=== PATIENT | female | born 1945 | race Caucasian/White ===

== ENCOUNTER 2018-11-15 07:30 | Day surgery (SDC) | payer MEDICARE, BC ==
[~2018-11-15] VITALS: Ht 172.7 cm; Wt 89.4 kg
[~2018-11-15 07:30] MED LIST: ALBU3IS NEB; ATOR10; AZAT50; AZAT50 PO; AZIT250; Bactrim Ds Tab1 EACH PO; Calcium 500 MG1 EACH PO; Cough Syru100 MG/5 M PO; DICL25ER PO; Diclofenac Pota50 MG; FLUSAL2505 PO; GABA300; GABA300 PO; HYDACE10B PO; HYDR-86; HYDR1TAB94; HYDSUL200; HYDSUL200 PO; Humalog100 UNIT/1; Humalog100 UNIT/1 SC; IBUP800 PO; INSULANPEN SC; LANS30EC; LANS30EC PO; LEVFLO500 PO; LOSARTAN-HCTZ1 EACH; LOSARTAN-HCTZ1 EACH PO; MELO7.5 PO; METFORMIN HCL1000 MG; METO25ER; METPRE4DP PO; Metformin HCl1000 MG PO; OXYC5; OXYC5 PO; PANT40; PRED10 PO; TRAM50; TRAM50 PO; TRESIBA FL100 UNIT/1; Tussionex Penn480 ML PO; VITAMIN D33000 UNIT PO; Ventolin/Prove6.7 GM INH; ZOLP5; Zolpidem Tartra10 MG PO
[2018-11-15] MEDS ORDERED: ERGO400 (08:08)
[2018-11-15] MEDS ORDERED: Fortamet500 MG (08:10)
--- NOTE | 2018-11-15 10:03 | NUR ---
11/15/18 1003 Christine Landrum PT C/O A LITTLE BIT OF NAUSEA IN SDU. PT DENIES FURTHER ANTI NAUSEA MEDICATIONS. NO EMESIS IN SDU. LUNGS CTA WITH DRY COUGH. VSS.
--- NOTE | 2018-11-15 10:41 | NUR ---
11/15/18 1041 Kami Easley [id number] PT. RETCHING, THEN WITH SMALL AMT. YELLOW EMESIS. PT. SUCTIONED ORALLY FOR SMALL AMT. YELLOW SECRETIONS. PT. GIVEN ZOFRAN 4MG IV PER DR. TESFAYE. [id number] PT. RETCHING AGAIN. PT. ORALLY SUCTIONED AGAIN FOR SMALL AMT. YELLOW SECRETIONS. POST COLONOSCOPY PT. DID C/O FEELING A LITTLE BIT NAUSEATED WHEN SHE WOKE UP. PT. VERBALIZES DOING OK. V.S.S.
== END 2018-11-15 10:07 | disposition home or self-care (01) ==
LOC: ORSCSDS 07:30
PROVIDERS: Internal Medicine Gastroenterology
PROC: 0DBH8ZX Excision of Cecum, Via Natural or Artificial Opening Endoscopic, Diagnostic (ICD-10-PCS; principal; 2018-11-15 09:00)
DX: Z12.11 Encounter for screening for malignant neoplasm of colon (principal); D12.0 Benign neoplasm of cecum; K57.30 Diverticulosis of large intestine without perforation or abscess without bleeding; E11.9 Type 2 diabetes mellitus without complications; I10 Essential (primary) hypertension; Z87.891 Personal history of nicotine dependence; Z79.4 Long term (current) use of insulin; Z79.899 Other long term (current) drug therapy
CPT/HCPCS: 82947; 88305; J0330; J1980; J2405; J7120

== ENCOUNTER 2019-07-10 07:57 | Emergency (ER) | payer MEDICARE, BC ==
[~2019-07-10] VITALS: Ht 170.2 cm; Wt 90.7 kg
[~2019-07-10 07:57] MED LIST changes: +ERGO400; +Fortamet500 MG
[2019-07-10] MEDS ORDERED: ALBU2.5V5 INH (11:14)
[2019-07-10] MEDS ORDERED: MUCINEX D ER 61 EACH PO (11:14)
== END 2019-07-10 11:23 | disposition home or self-care (01) ==
LOC: ER 07:57
DX: J02.9 Acute pharyngitis, unspecified (principal); J40 Bronchitis, not specified as acute or chronic; Z88.5 Allergy status to narcotic agent; Z88.8 Allergy status to other drugs, medicaments and biological substances; Z79.899 Other long term (current) drug therapy; Z79.4 Long term (current) use of insulin; Z79.891 Long term (current) use of opiate analgesic; E11.9 Type 2 diabetes mellitus without complications; Z87.891 Personal history of nicotine dependence
CPT/HCPCS: 71046; 87081; 87430; 99283-25

== ENCOUNTER 2020-07-09 11:00 | Day surgery (SDC) | payer MEDICARE, BC ==
[~2020-07-09] VITALS: Ht 172.7 cm; Wt 88.1 kg
[~2020-07-09 11:00] MED LIST changes: +ALBU2.5V5 INH; +MUCINEX D ER 61 EACH PO
--- NOTE | 2020-07-09 11:29 | NUR ---
07/09/20 Abril Gao 1 TRY RIGHT HAND HAD A VALVE
== END 2020-07-09 13:25 | disposition home or self-care (01) ==
LOC: ORSCSDS 11:00
PROVIDERS: Internal Medicine Gastroenterology
PROC: 0DB88ZX Excision of Small Intestine, Via Natural or Artificial Opening Endoscopic, Diagnostic (ICD-10-PCS; principal; 2020-07-09 12:45)
PROC: 0DB58ZX Excision of Esophagus, Via Natural or Artificial Opening Endoscopic, Diagnostic (ICD-10-PCS; principal; 2020-07-09 12:45)
DX: K21.9 Gastro-esophageal reflux disease without esophagitis (principal); K22.2 Esophageal obstruction; K29.70 Gastritis, unspecified, without bleeding; R19.7 Diarrhea, unspecified; E66.9 Obesity, unspecified; Z68.30 Body mass index [BMI] 30.0-30.9, adult; Z87.891 Personal history of nicotine dependence; E11.9 Type 2 diabetes mellitus without complications; Z79.84 Long term (current) use of oral hypoglycemic drugs; Z79.4 Long term (current) use of insulin; Z79.899 Other long term (current) drug therapy
CPT/HCPCS: 82947; 87081; 88305; J2704; J7120

== ENCOUNTER → 2020-07-10 | Outpatient (CLI) | payer MEDICARE, BC ==
[2020-07-11 13:34] LABS: Adenovirus F 40/41 Not Detected (NOT DETECT); Campylobacter Sp Not Detected (NOT DETECT); Cryptosporidium Not Detected (NOT DETECT); Cyclospora Cayetanensis Not Detected (NOT DETECT); E. Coli O157 Not Detected (NOT DETECT); Entamoeba Histolytica Not Detected (NOT DETECT); Enteroaggregative E. coli-EAEC Not Detected (NOT DETECT); Enteropathogenic E. coli-EPEC Not Detected (NOT DETECT); Enterotoxigenic E. coli-ETEC Not Detected (NOT DETECT); Giardia Lamblia Not Detected (NOT DETECT); Plesiomonas Shigelloides Not Detected (NOT DETECT); Salmonella Sp Not Detected (NOT DETECT); Shiga Toxin-prod E. coli-STEC Not Detected (NOT DETECT); Shigella/Enteroin E. coli-EIEC Not Detected (NOT DETECT); Vibrio Cholerae Not Detected (NOT DETECT); Vibrio Sp Not Detected (NOT DETECT); Yersinia Enterocolitica Not Detected (NOT DETECT)
[2020-07-11 13:35] LABS: Astrovirus Not Detected (NOT DETECT); Norovirus GI/GII Not Detected (NOT DETECT); Rotavirus A Not Detected (NOT DETECT); Sapovirus Not Detected (NOT DETECT)
== END | disposition home or self-care (01) ==
LOC: LAB SHORT 11:27 → OLS 11:27 → LAB SHORT 07-11 11:27
PROVIDERS: Internal Medicine Gastroenterology
DX: R19.7 Diarrhea, unspecified (principal)
CPT/HCPCS: 0097U

== ENCOUNTER → 2021-10-29 | Outpatient (CLI) | payer MEDICARE, BC | END | disposition home or self-care (01) | LOC: LAB SHORT 15:06 | DX: L82.1 Other seborrheic keratosis (principal) | CPT/HCPCS: 88305 ==

== ENCOUNTER → 2022-01-09 | Outpatient (CLI) | payer MEDICARE, BC | END | disposition home or self-care (01) | LOC: LAB SHORT 10:28 → LAB 10:28 | DX: R30.9 Painful micturition, unspecified (principal) | CPT/HCPCS: 87077; 87086; 87186 ==

== ENCOUNTER 2022-05-23 08:04 | Emergency (ER) | payer MEDICARE, BC ==
[~2022-05-23] VITALS: Ht 170.2 cm; Wt 78.9 kg
[2022-05-23] MEDS ORDERED: HYDR1TAB94 PO (10:24)
[2022-05-23] MEDS ORDERED: Prednisone20 MG PO (10:39)
[2022-05-23] MEDS ORDERED: CYCL10 PO (10:39)
== END 2022-05-23 10:46 | disposition home or self-care (01) ==
LOC: ER 08:04
DX: M54.50 Low back pain, unspecified (principal); G89.29 Other chronic pain; I10 Essential (primary) hypertension; K21.9 Gastro-esophageal reflux disease without esophagitis; E11.9 Type 2 diabetes mellitus without complications; J45.909 Unspecified asthma, uncomplicated; Z79.899 Other long term (current) drug therapy; Z79.4 Long term (current) use of insulin; Z88.5 Allergy status to narcotic agent; Z88.8 Allergy status to other drugs, medicaments and biological substances; Z87.891 Personal history of nicotine dependence
CPT/HCPCS: 99283

== ENCOUNTER 2022-10-02 12:48 | Emergency (ER) | payer MEDICARE, BC ==
[~2022-10-02] VITALS: Ht 170.2 cm; Wt 78.5 kg
[~2022-10-02 12:48] MED LIST changes: +CYCL10 PO; +HYDR1TAB94 PO; +Prednisone20 MG PO
== END 2022-10-02 14:05 | disposition home or self-care (01) ==
LOC: ER 12:48
DX: R60.0 Localized edema (principal); I10 Essential (primary) hypertension; K21.9 Gastro-esophageal reflux disease without esophagitis; E11.9 Type 2 diabetes mellitus without complications; J45.909 Unspecified asthma, uncomplicated; Z87.891 Personal history of nicotine dependence; Z88.5 Allergy status to narcotic agent; Z88.8 Allergy status to other drugs, medicaments and biological substances; Z79.899 Other long term (current) drug therapy; Z79.84 Long term (current) use of oral hypoglycemic drugs
CPT/HCPCS: 73630

== ENCOUNTER → 2024-02-03 | Outpatient (CLI) | payer MEDICARE, BC ==
[~2024-02-03] MED LIST changes: +AMOCLA875 PO; -ATOR10; +ATOR10 PO; +BASAGLAR K100 UNIT/1 SC; -ERGO400; +ERGO400 PO; +GUAI600T33 PO; +HUMALOG100 UNIT/1 SC; -Humalog100 UNIT/1; +JARDIANCE25 MG PO; -LANS30EC; -LOSARTAN-HCTZ1 EACH; +METF500 PO; -METO25ER; +METO25ER PO; +OXYB5 PO; -OXYC5; -PANT40; +PANT40 PO; +Ventolin5 MG/1 ML INH; -ZOLP5; +ZOLP5 PO
== END ==
LOC: LAB SHORT 13:32 → LAB EV 13:32
DX: R06.02 Shortness of breath (principal)
CPT/HCPCS: 87070; 87205

== ENCOUNTER 2024-07-21 21:08 | Observation (INO) | payer MEDICARE, BC ==
[~2024-07-21] VITALS: Ht 170.2 cm; Wt 71.9 kg
[2024-07-21 21:44] LABS: BASOPHILS ABSOLUTE AUTO 0.06 K/mm3 (0.00-0.23); BASOPHILS PERCENT AUTO 1 % (0-2); EOSINOPHILS ABSOLUTE AUTO 0.23 K/mm3 (0.00-0.68); EOSINOPHILS PERCENT AUTO 3 % (0-6); Hematocrit 34.7 % (33.0-51.0); IMMATURE GRAN ABSOLUTE AUTO 0.02 K/mm3 (0.00-0.10); IMMATURE GRAN PERCENT AUTO 0 % (0-1); LYMPHOCYTES ABSOLUTE AUTO 1.03 K/mm3 (0.84-5.20); LYMPHOCYTES PERCENT AUTO 11 % (21-46); MONOCYTES ABSOLUTE AUTO 0.96 K/mm3 (0.16-1.47); MONOCYTES PERCENT AUTO 11 % (4-13); Mean Corpuscular HGB 28.8 pg (26.0-34.0); Mean Corpuscular HGB Conc 31.7 g/dL (31.5-36.5); Mean Corpuscular Volume 91 fL (80-100); Mean Platelet Volume 10.2 fL (9.1-12.4); NEUTROPHILS ABSOLUTE AUTO 6.75 K/mm3 (1.96-9.15); NEUTROPHILS PERCENT AUTO 75 % (41-73); Platelet Count 328 K/mm3 (150-400); RDW Coefficient Variation 14.6 % (11.7-14.2); RDW Standard Deviation 48.7 fL (35.1-46.3); Red Blood Cell Count 3.82 M/mm3 (3.80-5.20); White Blood Cell Count 9.05 K/mm3 (4.00-11.30)
[2024-07-21 21:56] LABS: Source, Urine Clean Catch
[2024-07-21 21:58] LABS: Bilirubin, Urine Neg (Neg); Blood, Urine Neg (Neg); Glucose Qualitative, Urine 4+ (Neg); Ketones, Urine Neg (Neg); Leukocyte Esterase, Urine Neg (Neg); Nitrite, Urine Neg (Neg); Protein, Urine Neg (Neg); Specific Gravity, Urine 1.005 (1.003-1.022); Urobilinogen, Urine NORM (Normal)
[2024-07-21 22:01] LABS: International Normalized Ratio 0.96; Prothrombin Time Results 10.3 Sec (9.7-11.5)
[2024-07-21 22:11] LABS: Alanine Aminotransfer (ALT/SGP 11 U/L (12-78); Albumin/Globulin Ratio 0.8 (0.8-1.8); Alk Phos 102 U/L (50-136); Anion Gap 12 mmol/L (3-11); Aspartate Aminotrans (AST/SGOT 22 U/L (12-37); Bilirubin, Total 0.3 mg/dL (0.1-1.0); Blood Urea Nitrogen 10 mg/dL (8-24); Bun/Creatinine Ratio 11.9 (12.0-20.0); CO2, Blood 24 mmol/L (21-32); Calcium, Blood 8.8 mg/dL (8.5-10.1); Chloride, Blood 108 mmol/L (98-108); Creatinine, Blood 0.84 mg/dL (0.40-1.00); Ethanol (Alcohol), Blood, Med <3 mg/dL; Free Thyroxine 0.84 ng/dL (0.70-1.60); Globulin, Blood 3.9 g/dL (2.2-4.0); Glomerular Filtration Rate 72 (60-); Glucose, Blood 226 mg/dL (70-99); Magnesium, Blood 1.6 mg/dL (1.6-2.4); Potassium, Blood 4.1 mmol/L (3.5-5.5); Sodium, Blood 140 mmol/L (136-145); Total Protein, Blood 6.9 g/dL (6.4-8.2)
[2024-07-21 22:11] LABS: Appearance, Urine Clear (Clear); Color, Urine Pale Yellow (P-Yellow)
[2024-07-22] MEDS ORDERED: FLU VACC TS2024-25(6MOS UP)/PF 45 MCG/0.5 ML SYRINGE IM ONE (00:15)
[2024-07-22] MEDS ORDERED: ZYPREXA2.5 MG PO (00:37)
[2024-07-22] MEDS ORDERED: DODEX1000 MCG/3 IM (00:37)
[2024-07-22] MEDS ORDERED: FOLI1 PO (00:37)
[2024-07-22] MEDS ORDERED: 1/2 NS 250ml250 ML (02:32)
[2024-07-22] MEDS ORDERED: GABA300 PO (02:32)
[2024-07-22] MEDS ORDERED: LEFL20 PO (02:33)
[2024-07-22] MEDS ORDERED: PIRO20 PO (02:34)
[2024-07-22 02:44] LABS: U Amphetamine Screen Not Detected; U Barbituate Screen Not Detected; U Benzodiazapine Screen Not Detected; U Buprenorphine Screen Not Detected; U Cannabinoids Screen Not Detected; U Cocaine Screen Not Detected; U Methadone Screen Not Detected; U Methamphetamine Screen Not Detected; U Opiates Screen Not Detected; U Oxycodone Screen Not Detected; U Phencyclidine Screen Not Detected
[2024-07-22 03:12] VITALS: BP 131/75
[2024-07-22 03:13] VITALS: BP 131/75
[2024-07-22] MEDS ORDERED: Insulin Human Lispro 100 Units/ML 3ML Syringe SC SCH ×2 (06:00→07:30)
--- NOTE | 2024-07-22 06:25 | NUR ---
Shift Summary Pt admitted to this unit for AMS. She has a current dx of lung cancer with concerns of mets to the head. MRI scheduled for this AM, MRI screening form was completed by pt's and faxed to imaging at 0605. Pt is AOx1, forgetful and confused. Her strength is equal on both sides, eyes are PERRLA, no facial droop. She has DM2 and is currently NPO per MD order, Q6 blood sugars. BG this AM was 140, no coverage needed.
[2024-07-22 07:22] VITALS: BP 125/69
[2024-07-22 08:00] LABS: BASOPHILS ABSOLUTE AUTO 0.05 K/mm3 (0.00-0.23); BASOPHILS PERCENT AUTO 1 % (0-2); EOSINOPHILS ABSOLUTE AUTO 0.14 K/mm3 (0.00-0.68); EOSINOPHILS PERCENT AUTO 2 % (0-6); Hematocrit 36.1 % (33.0-51.0); Hemoglobin 11.5 g/dL (11.5-16.0); IMMATURE GRAN ABSOLUTE AUTO 0.04 K/mm3 (0.00-0.10); IMMATURE GRAN PERCENT AUTO 0 % (0-1); LYMPHOCYTES ABSOLUTE AUTO 1.41 K/mm3 (0.84-5.20); LYMPHOCYTES PERCENT AUTO 15 % (21-46); MONOCYTES ABSOLUTE AUTO 0.94 K/mm3 (0.16-1.47); MONOCYTES PERCENT AUTO 10 % (4-13); Mean Corpuscular HGB 28.7 pg (26.0-34.0); Mean Corpuscular HGB Conc 31.9 g/dL (31.5-36.5); Mean Corpuscular Volume 90 fL (80-100); Mean Platelet Volume 11.3 fL (9.1-12.4); NEUTROPHILS ABSOLUTE AUTO 6.97 K/mm3 (1.96-9.15); NEUTROPHILS PERCENT AUTO 73 % (41-73); Platelet Count 364 K/mm3 (150-400); RDW Coefficient Variation 14.7 % (11.7-14.2); RDW Standard Deviation 48.1 fL (35.1-46.3); Red Blood Cell Count 4.01 M/mm3 (3.80-5.20); White Blood Cell Count 9.55 K/mm3 (4.00-11.30)
[2024-07-22 08:13] LABS: Bun/Creatinine Ratio 12.9 (12.0-20.0); Calcium, Blood 9.3 mg/dL (8.5-10.1); Creatinine, Blood 0.7 mg/dL (0.40-1.00); Potassium, Blood 3.8 mmol/L (3.5-5.5)
[2024-07-22] MEDS ORDERED: Atorvastatin 40 MG Tab PO SCH (09:00)
[2024-07-22] MEDS ORDERED: Enoxaparin 40 MG/0.4 ML SYR SC SCH (09:00)
[2024-07-22] MEDS ORDERED: Aspirin 81 MG Chew PO SCH (09:00)
[2024-07-22] MEDS ORDERED: dexAMETHasone 4 MG TAB PO STA (13:51)
[2024-07-22] MEDS ORDERED: DECADRON4 M1 PO (14:29)
[2024-07-22] MEDS ORDERED: ASPI81CH PO (14:29)
[2024-07-22] MEDS ORDERED: DOXE10 PO (14:39)
--- NOTE | 2024-07-22 15:36 | NUR ---
DISCUSSED DISCHARGE INSTRUCTIONS WITH PT, HER , AND PT'S DIL. ALL PERSONAL BELONGINGS SENT HOME. IV REMOVED. PT TRANSPORTED TO PERSONAL VEHICLE VIA WHEELCHAIR. PT'S PROVIDING TRANSPORTATION TO PRIVATE RESIDENCE VIA PRIVATE VEHICLE.
== END 2024-07-22 15:37 | disposition home or self-care (01) ==
LOC: ER 21:08 → MEDS 21:09
PROVIDERS: Family Medicine; Pediatrics; Student in an Organized Health Care Education/Training Program; ADMIT Student in an Organized Health Care Education/Training Program
DX: R41.82 Altered mental status, unspecified (principal); C34.2 Malignant neoplasm of middle lobe, bronchus or lung; C79.31 Secondary malignant neoplasm of brain; D64.9 Anemia, unspecified; E11.9 Type 2 diabetes mellitus without complications; I10 Essential (primary) hypertension; E78.5 Hyperlipidemia, unspecified; K21.9 Gastro-esophageal reflux disease without esophagitis; I65.23 Occlusion and stenosis of bilateral carotid arteries; Z87.891 Personal history of nicotine dependence; Z88.5 Allergy status to narcotic agent; Z88.6 Allergy status to analgesic agent; Z88.8 Allergy status to other drugs, medicaments and biological substances; Z79.4 Long term (current) use of insulin; Z79.899 Other long term (current) drug therapy; Z90.49 Acquired absence of other specified parts of digestive tract
CPT/HCPCS: 36415; 70450; 70496; 70498; 70553; 71045; 80048; 80053; 80320; 81003; 82947; 83735; 84439; 84443; 84484; 85025; 85610; 85730; 92610; 93005; 93010; 96372; 99285-25; A9270; A9579; G0378; J1650; Q9967

== ENCOUNTER 2025-01-09 00:14 | Day surgery (SDC) | payer MEDICARE, BC ==
[~2025-01-09 00:14] MED LIST changes: +1/2 NS 250ml250 ML; +ASPI81CH PO; +DECADRON4 M1 PO; +DODEX1000 MCG/3 IM; +DOXE10 PO; +FOLI1 PO; +LEFL20 PO; +PIRO20 PO; +ZYPREXA2.5 MG PO
[2025-01-09] MEDS ORDERED: ZOLEDRONIC ACID/MANNITOL-WATER 100 ML IV SCH (06:00)
[2025-01-09 11:24] VITALS: BP 106/75
[2025-01-09] MEDS ORDERED: PANTOPRAZOLE SO40 M2 PO (11:33)
[2025-01-09] MEDS ORDERED: OXYC10TA19 PO (11:33)
[2025-01-09] MEDS ORDERED: PIROXICAM20 MG PO (11:34)
--- NOTE | 2025-01-09 12:13 | NUR ---
MONITORED PT FOR 15 MINUTES POST INFUSION. NOT S/S OF ALLERGIC REACTION. PT SENT HOME W/ MEDICATION EDUACTION.
== END 2025-01-09 11:59 | disposition home or self-care (01) ==
LOC: ATC 00:14
DX: M81.0 Age-related osteoporosis without current pathological fracture (principal); E78.2 Mixed hyperlipidemia; E11.69 Type 2 diabetes mellitus with other specified complication; E11.51 Type 2 diabetes mellitus with diabetic peripheral angiopathy without gangrene; E11.43 Type 2 diabetes mellitus with diabetic autonomic (poly)neuropathy; K31.84 Gastroparesis; I25.10 Atherosclerotic heart disease of native coronary artery without angina pectoris; G47.33 Obstructive sleep apnea (adult) (pediatric); C79.31 Secondary malignant neoplasm of brain; Z88.5 Allergy status to narcotic agent; Z88.8 Allergy status to other drugs, medicaments and biological substances; Z79.899 Other long term (current) drug therapy; Z79.84 Long term (current) use of oral hypoglycemic drugs
CPT/HCPCS: 96374; J3489

== ENCOUNTER 2025-01-18 02:12 | Emergency (ER) | payer MEDICARE, BC ==
[~2025-01-18] VITALS: Ht 170.2 cm; Wt 65.8 kg
[~2025-01-18 02:12] MED LIST changes: +OXYC10TA19 PO; +PANTOPRAZOLE SO40 M2 PO; +PIROXICAM20 MG PO
[2025-01-18 03:09] LABS: BASOPHILS ABSOLUTE AUTO 0.04 K/mm3 (0.00-0.23); BASOPHILS PERCENT AUTO 0 % (0-2); EOSINOPHILS ABSOLUTE AUTO 0.11 K/mm3 (0.00-0.68); EOSINOPHILS PERCENT AUTO 1 % (0-6); Hematocrit 37.9 % (33.0-51.0); Hemoglobin 11.7 g/dL (11.5-16.0); IMMATURE GRAN ABSOLUTE AUTO 0.05 K/mm3 (0.00-0.10); IMMATURE GRAN PERCENT AUTO 0 % (0-1); LYMPHOCYTES ABSOLUTE AUTO 1.13 K/mm3 (0.84-5.20); LYMPHOCYTES PERCENT AUTO 8 % (21-46); MONOCYTES ABSOLUTE AUTO 1.08 K/mm3 (0.16-1.47); MONOCYTES PERCENT AUTO 8 % (4-13); Mean Corpuscular HGB 26.2 pg (26.0-34.0); Mean Corpuscular HGB Conc 30.9 g/dL (31.5-36.5); Mean Corpuscular Volume 85 fL (80-100); Mean Platelet Volume 10.6 fL (9.1-12.4); NEUTROPHILS ABSOLUTE AUTO 11.89 K/mm3 (1.96-9.15); NEUTROPHILS PERCENT AUTO 83 % (41-73); Platelet Count 391 K/mm3 (150-400); RDW Coefficient Variation 17.8 % (11.7-14.2); RDW Standard Deviation 55.1 fL (35.1-46.3); Red Blood Cell Count 4.46 M/mm3 (3.80-5.20)
[2025-01-18 03:33] LABS: Albumin, Blood 3.2 g/dL (3.4-5.0); Albumin/Globulin Ratio 0.7 (0.8-1.8); Bun/Creatinine Ratio 12.6 (12.0-20.0); Creatinine, Blood 0.55 mg/dL (0.40-1.00); Globulin, Blood 4.3 g/dL (2.2-4.0); Potassium, Blood 3.6 mmol/L (3.5-5.5); Total Protein, Blood 7.5 g/dL (6.4-8.2)
[2025-01-18 04:00] LABS: Influenza A, PCR NEGATIVE (NEGATIVE); Influenza B, PCR NEGATIVE (NEGATIVE); Resp Syncytial Virus, PCR NEGATIVE (NEGATIVE); SARS-Cov-2 (COVID-19) PCR, MMC NEGATIVE (NEGATIVE)
[2025-01-18] MEDS ORDERED: Ipratropium/Albuterol SulF 2.5-0.5MG/3 ML Amp INH ONE (04:05)
[2025-01-18] MEDS ORDERED: Amoxicillin/Clavulanate K 875 MG Tab PO ONE (04:05)
[2025-01-18] MEDS ORDERED: Azithromycin 250 MG Tab PO ONE (04:05)
[2025-01-18] MEDS ORDERED: NS 1,000 ML IV SCH (04:10)
[2025-01-18] MEDS ORDERED: AZIT250 PO (04:42)
[2025-01-18] MEDS ORDERED: AMOCLA875 PO (04:42)
[2025-01-18 05:30] VITALS: BP 102/57
== END 2025-01-18 05:50 | disposition home or self-care (01) ==
LOC: ER 02:12
PROVIDERS: Emergency Medicine
DX: J18.9 Pneumonia, unspecified organism (principal); E86.0 Dehydration; R07.89 Other chest pain; I10 Essential (primary) hypertension; K21.9 Gastro-esophageal reflux disease without esophagitis; M06.9 Rheumatoid arthritis, unspecified; E11.9 Type 2 diabetes mellitus without complications; J45.909 Unspecified asthma, uncomplicated; Z87.891 Personal history of nicotine dependence; Z88.5 Allergy status to narcotic agent; Z88.6 Allergy status to analgesic agent; Z88.8 Allergy status to other drugs, medicaments and biological substances; Z79.82 Long term (current) use of aspirin; Z79.84 Long term (current) use of oral hypoglycemic drugs; Z79.4 Long term (current) use of insulin; Z79.899 Other long term (current) drug therapy; Z59.89 Other problems related to housing and economic circumstances
CPT/HCPCS: 0241U; 71046; 80053; 84484; 85025; 93005; 93010; 94640; 94664; 96360; 99284-25; A9270; J7030

== ENCOUNTER 2025-01-21 08:14 | Emergency (ER) | payer MEDICARE, BC ==
[~2025-01-21] VITALS: Ht 170.2 cm; Wt 67.1 kg
[~2025-01-21 08:14] MED LIST changes: +AZIT250 PO
[2025-01-21 10:09] LABS: BASOPHILS ABSOLUTE AUTO 0.03 K/mm3 (0.00-0.23); BASOPHILS PERCENT AUTO 0 % (0-2); EOSINOPHILS PERCENT AUTO 1 % (0-6); Hematocrit 39.3 % (33.0-51.0); Hemoglobin 11.9 g/dL (11.5-16.0); IMMATURE GRAN ABSOLUTE AUTO 0.05 K/mm3 (0.00-0.10); IMMATURE GRAN PERCENT AUTO 1 % (0-1); LYMPHOCYTES ABSOLUTE AUTO 1.33 K/mm3 (0.84-5.20); LYMPHOCYTES PERCENT AUTO 12 % (21-46); MONOCYTES ABSOLUTE AUTO 0.56 K/mm3 (0.16-1.47); MONOCYTES PERCENT AUTO 5 % (4-13); Mean Corpuscular HGB 26.5 pg (26.0-34.0); Mean Corpuscular HGB Conc 30.3 g/dL (31.5-36.5); Mean Corpuscular Volume 88 fL (80-100); Mean Platelet Volume 11.1 fL (9.1-12.4); NEUTROPHILS ABSOLUTE AUTO 8.94 K/mm3 (1.96-9.15); NEUTROPHILS PERCENT AUTO 81 % (41-73); Platelet Count 429 K/mm3 (150-400); RDW Standard Deviation 58.2 fL (35.1-46.3); Red Blood Cell Count 4.49 M/mm3 (3.80-5.20); White Blood Cell Count 11.01 K/mm3 (4.00-11.30)
[2025-01-21 10:29] LABS: Albumin/Globulin Ratio 0.7 (0.8-1.8); Bilirubin, Total 0.4 mg/dL (0.1-1.0); Bun/Creatinine Ratio 7.8 (12.0-20.0); Calcium, Blood 8.3 mg/dL (8.5-10.1); Creatinine, Blood 0.64 mg/dL (0.40-1.00); Globulin, Blood 4.2 g/dL (2.2-4.0); Potassium, Blood 3.6 mmol/L (3.5-5.5); Total Protein, Blood 7.2 g/dL (6.4-8.2)
[2025-01-21] MEDS ORDERED: MethylPREDNISolone Sod Succ 125 MG Vial IV ONE (11:00)
[2025-01-21] MEDS ORDERED: Ipratropium/Albuterol SulF 2.5-0.5MG/3 ML Amp INH ONE ×2 (11:00)
[2025-01-21] MEDS ORDERED: ALBU3IS INH (12:26)
[2025-01-21] MEDS ORDERED: PRED20 PO (12:26)
[2025-01-21] MEDS ORDERED: IPRAT-ALBUT 0.5-3 ML INH (12:26)
[2025-01-21 15:00] VITALS: BP 133/88
== END 2025-01-21 15:50 | disposition home or self-care (01) ==
LOC: ER 08:14
PROVIDERS: Physician Assistant
DX: J44.1 Chronic obstructive pulmonary disease with (acute) exacerbation (principal); Z87.891 Personal history of nicotine dependence; E11.9 Type 2 diabetes mellitus without complications; M19.90 Unspecified osteoarthritis, unspecified site
CPT/HCPCS: 71260; 80053; 84484; 85025; 85379; 93005; 93010; 94640; 94664; 96374-59; 99285-25; J2919; Q9967

== ENCOUNTER → 2025-02-07 | Outpatient (CLI) | payer MEDICARE, BC ==
[~2025-02-07] MED LIST changes: +ALBU3IS INH; +IPRAT-ALBUT 0.5-3 ML INH; +PRED20 PO
[2025-02-07 17:45] LABS: Microalb/Creat Ratio UR, Rand 68.4 mg/g (0.000-30.000); Microalbumin, Random Urine 17.1 mg/L (0.000-20.000)
== END | disposition home or self-care (01) ==
LOC: LAB 12:00 → LAB SHORT 12:00
PROVIDERS: Internal Medicine
DX: E11.42 Type 2 diabetes mellitus with diabetic polyneuropathy (principal); Z79.4 Long term (current) use of insulin
CPT/HCPCS: 82043; 82570

== ENCOUNTER 2025-05-31 10:53 | Observation (INO) | payer MEDICARE, BC ==
[~2025-05-31] VITALS: Ht 170.2 cm; Wt 65.3 kg
[2025-05-31] MEDS ORDERED: Ondansetron HCl 2 MG / ML 2ML Vial IV ONE (11:15)
[2025-05-31 11:58] LABS: BASOPHILS ABSOLUTE AUTO 0.04 K/mm3 (0.00-0.23); BASOPHILS PERCENT AUTO 0 % (0-2); EOSINOPHILS ABSOLUTE AUTO 0.01 K/mm3 (0.00-0.68); EOSINOPHILS PERCENT AUTO 0 % (0-6); Hematocrit 44.0 % (33.0-51.0); Hemoglobin 13.4 g/dL (11.5-16.0); IMMATURE GRAN ABSOLUTE AUTO 0.06 K/mm3 (0.00-0.10); IMMATURE GRAN PERCENT AUTO 0 % (0-1); LYMPHOCYTES ABSOLUTE AUTO 0.94 K/mm3 (0.84-5.20); LYMPHOCYTES PERCENT AUTO 6 % (21-46); MONOCYTES ABSOLUTE AUTO 0.59 K/mm3 (0.16-1.47); MONOCYTES PERCENT AUTO 4 % (4-13); Mean Corpuscular HGB Conc 30.5 g/dL (31.5-36.5); Mean Corpuscular Volume 88 fL (80-100); NEUTROPHILS ABSOLUTE AUTO 13.12 K/mm3 (1.96-9.15); NEUTROPHILS PERCENT AUTO 89 % (41-73); NRBC ABSOLUTE 0.00 K/mm3 (0.00-0.02); NRBC Auto 0.0 /100 WBC (0.0-0.2); Platelet Count 304 K/mm3 (150-400); RDW Coefficient Variation 19.3 % (11.7-14.2); RDW Standard Deviation 61.1 fL (35.1-46.3)
[2025-05-31 12:11] LABS: Influenza A, PCR NEGATIVE (NEGATIVE); Influenza B, PCR NEGATIVE (NEGATIVE); Resp Syncytial Virus, PCR NEGATIVE (NEGATIVE); SARS-Cov-2 (COVID-19) PCR, MMC NEGATIVE (NEGATIVE)
[2025-05-31 12:52] LABS: Alanine Aminotransfer (ALT/SGP 14.0 U/L (12-78); Albumin, Blood 3.6 g/dL (3.4-5.0); Albumin/Globulin Ratio 1.0 (0.8-1.8); Anion Gap 6.0 mmol/L (3-11); Aspartate Aminotrans (AST/SGOT 17.0 U/L (12-37); Bilirubin, Total 1.2 mg/dL (0.1-1.0); Blood Urea Nitrogen 16.0 mg/dL (8-24); CO2, Blood 24.0 mmol/L (21-32); Calcium, Blood 9.0 mg/dL (8.5-10.1); Chloride, Blood 105.0 mmol/L (98-108); Creatinine, Blood 1.03 mg/dL (0.40-1.00); Globulin, Blood 3.7 g/dL (2.2-4.0); Glucose, Blood 361.0 mg/dL (70-99); Potassium, Blood 3.3 mmol/L (3.5-5.5); Sodium, Blood 132.0 mmol/L (136-145); Total Protein, Blood 7.3 g/dL (6.4-8.2)
[2025-05-31] MEDS ORDERED: NS 1,000 ML IV SCH (13:55)
[2025-05-31] MEDS ORDERED: Ondansetron HCl 2 MG / ML 2ML Vial IV PRN (15:15)
[2025-05-31] MEDS ORDERED: Metoclopramide HCl 5MG / ML 2ML Vial IV PRN (15:15)
[2025-05-31] MEDS ORDERED: FentaNYL Citrate 50 MCG/ML 2 ML Injection IV PRN (15:20)
[2025-05-31] MEDS ORDERED: Insulin Regular 100 UNIT/ML 10ML Vial SC SCH (16:30)
[2025-05-31 16:41] LABS: CHOL/HDL RATIO 4.8; Cholesterol 154 mg/dL (50-200); HDL Cholesterol 32 mg/dL (>39); LDL/HDL RATIO 2.6; Low Density Lipoprotein Chol 83 mg/dL (0-110); Triglycerides 194 mg/dL (30-160); Very Low Density Lipoprot Chol 38 mg/dL (6-32)
[2025-05-31 17:23] VITALS: BP 132/75
--- NOTE | 2025-05-31 18:40 | NUR ---
SHIFT SUMMARY/ADMIT PT AOX4, COOPERATIVE, ABLE TO MAKE NEEDS KNOWN. PT IS 1 PERSON ASSIST TO BATHROOM TO VOID. ON LR AT 125ML.HR CURRENLY. ON CLEAR LIQUID DIET. RUNNING TELE SINUS RHYTHM 65 BPM. BED IN LOWEST POSITION, CALL LIGHT WITHIN REACH.
[2025-05-31 20:09] VITALS: BP 139/78
[2025-05-31] MEDS ORDERED: Pantoprazole Sodium 40 MG Injection IV SCH (21:00)
[2025-05-31] MEDS ORDERED: Insulin Glargine-Yfgn 100 Unit/mL 3 ML SYR SC SCH (21:00)
[2025-06-01 04:37] VITALS: BP 106/65
[2025-06-01 04:40] LABS: BASOPHILS ABSOLUTE AUTO 0.04 K/mm3 (0.00-0.23); BASOPHILS PERCENT AUTO 0 % (0-2); EOSINOPHILS ABSOLUTE AUTO 0.16 K/mm3 (0.00-0.68); EOSINOPHILS PERCENT AUTO 2 % (0-6); Hematocrit 34.4 % (33.0-51.0); Hemoglobin 10.6 g/dL (11.5-16.0); IMMATURE GRAN ABSOLUTE AUTO 0.03 K/mm3 (0.00-0.10); IMMATURE GRAN PERCENT AUTO 0 % (0-1); LYMPHOCYTES ABSOLUTE AUTO 1.48 K/mm3 (0.84-5.20); LYMPHOCYTES PERCENT AUTO 16 % (21-46); MONOCYTES ABSOLUTE AUTO 0.70 K/mm3 (0.16-1.47); MONOCYTES PERCENT AUTO 8 % (4-13); Mean Corpuscular HGB Conc 30.8 g/dL (31.5-36.5); Mean Corpuscular Volume 87 fL (80-100); NEUTROPHILS ABSOLUTE AUTO 6.93 K/mm3 (1.96-9.15); NEUTROPHILS PERCENT AUTO 74 % (41-73); NRBC ABSOLUTE 0.00 K/mm3 (0.00-0.02); NRBC Auto 0.0 /100 WBC (0.0-0.2); Platelet Count 244 K/mm3 (150-400); RDW Coefficient Variation 18.9 % (11.7-14.2); RDW Standard Deviation 60.2 fL (35.1-46.3)
[2025-06-01 05:00] LABS: Anion Gap 8.0 mmol/L (3-11); Blood Urea Nitrogen 11.0 mg/dL (8-24); CO2, Blood 27.0 mmol/L (21-32); Calcium, Blood 8.1 mg/dL (8.5-10.1); Chloride, Blood 107.0 mmol/L (98-108); Creatinine, Blood 0.76 mg/dL (0.40-1.00); Glucose, Blood 105.0 mg/dL (70-99); Potassium, Blood 3.3 mmol/L (3.5-5.5); Sodium, Blood 139.0 mmol/L (136-145)
[2025-06-01 07:42] VITALS: BP 137/67
[2025-06-01] MEDS ORDERED: Enoxaparin 40 MG/0.4 ML SYR SC SCH (09:00)
--- NOTE | 2025-06-01 09:06 | NUR ---
pt laying in bed eating a clear liquid diet, states she's feeling pretty good, but slightly nauseated since eating, a/ox4, pleasant and cooperative with care, follows commands well, denies pain or tenderness to abd, lungs are clear t/o, resp even and unlabored, no cough noted, hrr, tele in place running sr per monitor, see strip, no edema noted, ppp+1, cap refill <3 sec, vs stable, afebrile, piv to rac stie is clear and patent, btx4, abd flat soft nontender, voids without diff, skin c/w/d, maew, ambulates indep, kaushik, call light in reach.
[2025-06-01] MEDS ORDERED: Ketorolac Tromethamine 15mg Vial IV ONE (10:50)
[2025-06-01] MEDS ORDERED: PANT40 PO (13:27)
[2025-06-01] MEDS ORDERED: TRAM50 PO (13:27)
--- NOTE | 2025-06-01 15:30 | NUR ---
Pt has been discharged to home, went over discharge instructions with her, she verbalized understanding. her h/a came down to 3/10 after medicating, piv removed intact, left via wheelchair with drive shaft and steering post repairer in attendence with all her belongings.
--- NOTE | 2025-06-01 15:34 | NUR ---
Upon receiving a referral for spiritual care, I visited the patient. SHe tells me that she will D/C home soon. She tells me about her medical issues, her gratitude to God for helping her through her two different battles with cancer and her solid support system with a wonderful of 38yrs. I provided thereaputic listening and gentel residential child care counselor. She responded well and showed signs of an elevated mood.
== END 2025-06-01 15:30 | disposition home or self-care (01) ==
LOC: ER 10:53 → MEDS 10:54 → ER 15:14 → MEDS 15:14
PROVIDERS: Physician Assistant; ADMIT Family Medicine
DX: K29.90 Gastroduodenitis, unspecified, without bleeding (principal); R19.7 Diarrhea, unspecified; N17.9 Acute kidney failure, unspecified; E87.6 Hypokalemia; E87.1 Hypo-osmolality and hyponatremia; R74.8 Abnormal levels of other serum enzymes; E11.9 Type 2 diabetes mellitus without complications; K21.9 Gastro-esophageal reflux disease without esophagitis; M32.9 Systemic lupus erythematosus, unspecified; Z87.891 Personal history of nicotine dependence; Z88.5 Allergy status to narcotic agent; Z88.8 Allergy status to other drugs, medicaments and biological substances; Z79.899 Other long term (current) drug therapy; Z85.118 Personal history of other malignant neoplasm of bronchus and lung; Z90.49 Acquired absence of other specified parts of digestive tract
CPT/HCPCS: 36415; 71046; 74177; 76705; 80048; 80053; 80061; 82947; 83690; 85025; 87637; 93005; 93010; 96361; 96374-59; 99285-25; A9270; G0378; J1650; J1815; J1885; J2405; J2470; J3010; J7030; J7120; Q9967